=== PATIENT | male | born 1970 | race Hispanic/Latino ===

== ENCOUNTER 2017-04-11 14:24 | Outpatient (CLI) | payer OTHER ==
[2017-04-11 14:37] LABS: Potassium 3.3 mmol/L (3.5-5.1)
[2017-04-11 15:08] LABS: Follow-up Chemistry Comp? YES; Follow-up Result - Chemistry REPORT FAXED
== END 2017-04-11 14:25 | disposition home or self-care (01) ==
LOC: NAV LABSP 14:24
PROVIDERS: ATTEND Nurse Practitioner Adult Health
DX: E87.8 Other disorders of electrolyte and fluid balance, not elsewhere classified (principal)
CPT/HCPCS: 84132